=== PATIENT | male | born 1990 | race Caucasian/White ===

== ENCOUNTER 2025-01-11 18:56 | Emergency (ER) | payer SELFPAY ==
--- OUTSIDE RECORDS SUMMARY | 2023-09-25 12:00 | XMS_ITS ---
Author Organization [facility] Address [address] [place] [address] Care Team Providers Care Senior Electronics Engineer Name Role Phone [facility] Unavailable [phone] REASON FOR VISIT Headache / Pain Encounters Encounter Location Date Provider Diagnosis [facility] [address] [place] [address] 09/25/2023 VIRTUAL PRACTICE [facility] Plan Of Treatment No Information Progress Notes * Johnny PETERSONDOB:1990 (34 yo M)Acc No.[id number]:09/25/2023 IMPORT Patient: Johnny BULLOCK Provider: Dillon SOLER :1990 A ge:32 Y S ex:Male Date:09/25/2023 Phone: Address:[address] [facility] Subjective: * Chief Complaints: * 1 . Headache / Pain. * Medical History: Objective: * Vitals: Assessment: Plan: * Treatment: * Billing Information: * Visit Code: * Procedure Codes: * Electronic signature of [facility] on 01/11/2025 at 08:08 PM EDT Sign off status: Pending * Provider: Dillon BUNN [facility] Date: 09/25/2023 Generated for Carmine cantrell/Perla/eTransmitting on: 01/11/2025 08:08 PM EDT
--- OUTSIDE RECORDS SUMMARY | 2024-07-22 04:40 | XMS_ITS ---
Author Organization [facility] Address [address] [place] [address] Support Name Relationship Address , Laxmi March Emergency Contact Unknown Unavailable Johnny Peterson Guarantor Unknown [phone] Care Team Providers Care Electrocardiograph Repairer Name Role Phone Tex Correia Primary Care Provider Unavaila Tex Marks Unavailable [phone] Hemanth Stewart Unavailable [phone] REASON FOR VISIT delayed f/u Encounters Encounter Location Date Provider Diagnosis [facility] Dillon [address] [facility] [place] [address] 07/22/2024 Hemanth Stewart Plan Of Treatment No Information Progress Notes * Johnny PETERSONDOB:1990 (34 yo M)Acc No.[id number]:07/22/2024 Progress Notes Patient: Gerry brownJohnny khan Provider: Gracie Stewart APRN :1990 A ge:33 Y S ex:Male Date:07/22/2024 Address:[address] [place], [place] [address] , [place] Pcp:Tex Correia Subjective: * Chief Complaints: * D elayed f/u Billing Information: * Procedure Codes: Care Plan Details* * Electronic signature of Davie Stewart APRN on 01/11/2025 at 07:08 PM CDT Sign off status: Pending * Provider: Gracie Stewart APRN Date: 07/22/2024 Generated for Printi ng/Faxing/eTransmitting on: 0 01/11/2025 07:08 PM CDT
--- OUTSIDE RECORDS SUMMARY | 2024-07-28 04:20 | XMS_ITS ---
Author Organization [facility] Address [address] [place] [address] Support Name Relationship Address , Laxmi March Emergency Contact Unknown Unavailable Johnny Peterson Guarantor Unknown [phone] Care Team Providers Care Mainspring Former Brace End Name Role Phone Tex Correia Primary Care Provider Unavaila Tex Marks Unavailable [phone] REASON FOR VISIT 2 Weeks. Must stay on schedule. [id number] Encounters Encounter Location Date Provider Diagnosis [facility] [address] [place] [address] 07/28/2024 Tex Correia Chronic pain syndrome G89.4 ; Jaw pain R68.84 and Other specified postprocedural states Z98.890 Assessments Encounter Date Diagnosis (ICD Code) Assessment Notes Treatment Notes Treatment Clinical Notes Section Notes 07/28/2024 Chronic pain syndrome (ICD-10 - G89.4) 07/28/2024 Jaw pain (ICD-10 - R68.84) 07/28/2024 Other specified postprocedural states (ICD-10 - Z98.890) Plan Of Treatment No Information History and Physical Notes * HPI (History of Present Illness) Category Sub-Category Detail Notes Category Not es Provider Note Patient presents to clinic today for a delayed follow-up in regard to his chronic pain. Patient has not been seen in the clinic since January 2024. The patient has been dealing with chronic jaw pain for an extended period. The pain is severe and often results in the jaw locking during activities. This has significantly impacted the patient's quality of life. The patient is scheduled for another jaw surgery, which involves a bone graft. This graft will be sent to infectious disease for further examination. This is not the patient's first experience with invasive treatment, as they have previously had a PICC line for treatment. The patient's surgery is scheduled for August 22. The patient has been on oxycodone 5mg up to 4 a day as needed for pain management. However, they express a desire to discontinue its use due to the opioid nature of the medication. The patient has also been on alprazolam and Trazodone, but has discontinued both with a him last filling his alprazolam early April. The patient has tried buprenorphine tablets in the past, but they caused a reaction of a rash and his pharmacist advised this was due to a reaction with his Trazodone prescription. Despite this, the patient is open to trying buprenorphine tablets again at a lower dose. Pain Details Pain Location ___ Quality ___ Severity of pain at its worst ___ Severity of pain at its best ___ Severity of average pain ___ Severity of pain right now ___ Severity of pain on medication ___ When did you last take your pain medicin e ___ Medication Details Do you have a lock b ox or safe place for medication away from minors and/or others? Yes Do you have any leftover pain medication building up at your house? No Do you understand that pain medication c an be addicting and can cause overdose? Yes Do you feel you can REDUCE the amount of medication you take today? No Opioid Assessment Tools Pill Count ___ Last Urine Drug Screen ___ Today's Rapid Urine Drug Screen ___ [place] Prescription Monitoring Program ___ COMM (Current Opioid Misuse Measure) ___ Treatment History Test undergone in the past ___ Past medication you have taken ___ Treatments you have had ___ Progress Notes * Johnny PETERSONDOB:1990 (34 yo M)Acc No.[id number]:07/28/2024 Progress Notes Patient: Johnny Mclaughlin Provider: Gracie Correia :1990 A ge:33 Y S ex:Male Date:07/28/2024 Address:[address] [place] [address], [id number] Pcp:Tex Correia Subjective: * Chief Complaints: * 2 Weeks. Must stay on schedule. [id number] * HPI: Ruth aguilar Note: Denies : . Patient presents to clinic today for a delayed follow-up in regard to his chronic pain. Patient has not been seen in the clinic since January 2024. The patient has been dealing with chronic jaw pain for an extended period. The pain is severe and often results in the jaw locking during activities. This has significantly impacted the patient's quality of life. The patient is scheduled for another jaw surgery, which involves a bone graft. This graft will be sent to infectious disease for further examination. This is not the patient's first experience with invasive treatment, as they have previously had a PICC line for treatment. The patient's surgery is scheduled for August 22. The patient has been on oxycodone 5mg up to 4 a day as needed for pain management. However, they express a desire to discontinue its use due to the opioid nature of the medication. The patient has also been on alprazolam and Trazodone, but has discontinued both with a him last filling his alprazolam early April. The patient has tried buprenorphine tablets in the past, but they caused a reaction of a rash and his pharmacist advised this was due to a reaction with his Trazodone prescription. Despite this, the patient is open to trying buprenorphine tablets again at a lower dose. P ain Details: Pain Location _ __. Quality _ __. Severity of pain at its worst _ __. Severity of pain at its best _ __. Severity of pain on medication _ __. Severity of average pain _ __. Severity of pain right now _ __. When did you last take your pain medicine _ __. M edication Details: Do you have a lock box or safe place for medication away from minors and/or others? Y es. Do you have any leftover pain medication building up at your house? N o. Do you understand that pain medication can be addicting and can cause overdose? Y es. Do you feel you can REDUCE the amount of medication you take today? N o. O pioid Assessment Tools: COMM (Current Opioid Misuse Measure) _ __. Pill Count _ __. Last Urine Drug Screen _ __. Today's Rapid Urine Drug Screen _ __. [place] Prescription Monitoring Program _ __. T reatment History: Test undergone in the past _ __. Past medication you have taken _ __. Treatments you have had _ __. * ROS: G eneral - Multi System: Constitutional D enies, f ever, recent weight gain, recent weight loss, fatigue. R espiratory D enies, wheezing, shortness of breath, cough, snoring. G astrointestinal D enies, nausea, vomiting, constipation, abdominal pain. P sychiatric D enies, , anxiety, depression, panic attacks, suicidal thoughts. Assessment: * Assessment: 1. C hronic pain syndrome - G89.4 2 . J aw pain - R68.84 3 . O ther specified postprocedural states - Z98.890 Care Plan Details* * Electronic signature of Anthony Correia MD on 01/11/2025 at 07:08 PM CDT Sign off status: Pending * Provider: Gracie Correia Date: 0 07/28/2024 Generated for Carmine cantrell/Perla/Brandi on: 0 01/11/2025 07:08 PM CDT
--- OUTSIDE RECORDS SUMMARY | 2024-12-10 07:00 | XMS_ITS ---
Author Organization [facility] Address [address], [place] [address] Care Team Providers Care Access Spec Name Role Phone Joshua Riggins Primary Care Provider [phone] Umberto Martinez III [phone] Allergies Allergen (clinical drug ingredient) Drug/Non Drug [...] 12/10/2024 Encounters Encounter Location Date Provider Diagnosis [facility] [place] [address] [place] [address] 12/10/2024 Joshua Riggins Plan Of Treatment No Information Progress Notes * Johnny PETERSONDOB:1990 (34 yo M)Acc No.[id number]:12/10/2024 Same Day Patient: Johnny BULLOCK Appointment Provider: ZAHRAA Moreno :1990 A ge:34 Y S ex:Male Date:12/10/2024 Address:[address] [place] [address], [facility] Subjective: * Chief Complaints: * 1 . [...] signature of Danilo Riggins , PAmber on 01/11/2025 at 07:07 PM CDT Sign off status: Pending * Appointment Provider: ZAHRAA Moreno Date: 12/10/2024 Generated for Carmine cantrell/Perla/Brandi on: 01/11/2025 07:07 PM CDT
--- OUTSIDE RECORDS SUMMARY | 2024-12-16 04:00 | XMS_ITS ---
Author Organization [facility] Address [address] [place] [id number] Care Team Providers Care Fibre Optics Jointer Name Role Phone Joshua Riggins Primary Care Provider Umberto Martinez III [phone] REASON FOR VISIT f/u visit Encounters Encounter Location Date Provider Diagnosis [facility] [address] [place] [address] 12/16/2024 Joshua Riggins Plan Of Treatment No Information Progress Notes * Johnny PETERSONDOB:1990 (34 yo M)Acc No.[id number]:12/16/2024 Progress Notes Patient: Johnny BULLOCK Appointment Provider: ZAHRAA Moreno :1990 A ge:34 Y S ex:Male Date:12/16/2024 Address:[address] [place], [place] [address] Subjective: * Chief Complaints: * 1 . F/u visit. * Medical History: Objective: * Vitals: Assessment: Plan: * Treatment: * * Electronic signature of Guido Petersen on 01/11/2025 at 07:08 PM CDT Sign off status: Pending * Appointment Provider: ZAHRAA Moreno Date: 0 12/16/2024 Generated for Carmine cantrell/Perla/eTransmitting on: 0 01/11/2025 07:08 PM CDT
--- OUTSIDE RECORDS SUMMARY | 2024-12-30 03:00 | XMS_ITS ---
Author Organization [facility] Address [address] [place] [id number] Care Team Providers Care Homogenizer Operator Name Role Phone Joshua Riggins Primary Care Provider Umberto Martinez III [phone] REASON FOR VISIT follow - up Encounters Encounter Location Date Provider Diagnosis [facility] [place] [address] [place] [address] 12/30/2024 Joshua Riggins Plan Of Treatment No Information Progress Notes * Johnny PETERSONDOB:1990 (34 yo M)Acc No.[id number]:12/30/2024 Progress Notes Patient: Johnny BULLOCK Appointment Provider: ZAHRAA Moreno :1990 A ge:34 Y S ex:Male Date:12/30/2024 Address:[address] [place], [place] [id number] Subjective: * Chief Complaints: * 1 . Follow - up. * Medical History: Objective: * Vitals: Assessment: Plan: * Treatment: * * Electronic signature of Guido Petersen on 01/11/2025 at 07:08 PM CDT Sign off status: Pending * Appointment Provider: ZAHRAA Moreno Date: 12/30/2024 Generated for Carmine ng/Faxing/eTransmitting on: 01/11/2025 07:08 PM CDT
[2025-01-11 18:59] VITALS: BP 169/110; PULSE 106; RESP 20; TEMP 36.7; O2SAT 98; BMI 29.9
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
--- OUTSIDE RECORDS SUMMARY | 2025-01-11 19:07 | XMS_ITS | Patient Health Record ---
Author Organization [facility] Address [address] [place] [address] Support Name Relationship Address , Laxmi March Emergency Contact Unknown Unavailable Johnny Kasper Guarantor Unknown [phone] Care Team Providers Care Event Staff Member Name Role Phone Tex Correia Primary Care Provider Unavaila Tex Marks Unavailable [phone] Migration, Provider Unavailable Unavailable Hemanth Stewart Unavailable [phone] Astrid Jimenez Unavailable [phone] Allergies Allergen (clinical drug ingredient) Drug/Non Drug Allergy documented on EMR Reaction Allergy Type Onset Date Status Substance with penicillin structure and antibacterial mechanism of action (substance) Penicillins Unknown Drug Allergy Active tramadol Tramadol Unknown Drug Allergy Active Results Component Value Reference Range Notes Urine Drug Screen (cup read) - 47083 Reviewed date:07/13/2024 01:16:43 PM Interpretation:Negative Performing Lab: Notes/Report: Negative zzzUrine Drug Screen (confir mation by instrument) - 78299 Reviewed date:07/20/2024 05:31:29 PM Interpretation: Performing Lab: Notes/Report: Reason For Referral No Information Medications Medication SIG (Take, Route, Frequency, Duration) Notes Start Date End Date Status Hydrocodone Bitartrate *Pick strength-form from [facility] for eRX* Unknown Social History Social History Additional Details Category Social Info Options Details Migrated Social History Migrated Social History Alcoholic beverages? - No, Currently on disability? - Yes, Nonprescription drug use? - No, Participation in detoxification or rehabilitation - No, Smoked in the past? - Yes, Smoking - 1 PPD, Smoking status (MU) - Current everyday smoker, Working currently? - Yes Problems Problem Type SNOMED Code ICD Code Onset Dates Problem Status W/U Status Risk Notes Problem Chronic pain syndrome (283447860) Chronic pain syndrome (G89.4) 12/04/2023 Active confirmed Vital Signs Height-cm 177.80 cm 07/07/2024 Height 70.00 in 07/07/2024 Encounters Encounter Location Date Provider Diagnosis Migrated_Facility 0 0 04/24/2024 Provider Migration Migrated_Facility 0 0 04/25/2024 Provider Migration [facility] [place] [address] [place] [address] 07/07/2024 Tex Correia [facility] [address] [facility] [place] [address] [facility] G89.4 [facility] [address] [facility] [place] [place] [facility] [place] [address] 07/14/2024 [facility] [address] [facility] [place] [facility] [place] [address] 07/14/2024 [facility] [address] [facility] [place] [place] [address] 07/[facility] Chronic pain syndrome G89.4 [facility] [place] [address] [place] [address] 07/15/2024 Tex Correia Chronic pain syndrome G89.4 [facility] [place] [address] [place] [address] 07/15/2024 Tex Correia Chronic pain syndrome G89.4 [facility] [address] [facility] [place] [address] 07/16/2024 [facility] [address] [facility] [place] [address] 07/20/2024 Tex Correia [facility] [place] [address] [place] [address] 08/13/2024 Tex Correia [facility] [place] [address] [place] [address] 01/29/2024 Hemanth Stewart [facility] [place] [address] [place] [address] 02/12/2024 Tex Correia [facility] [address] [facility] [place] [address] 07/13/2024 Astrid Jimenez Chronic pain syndrome G89.4 ; Jaw pain R68.84 ; History of bone graft Z98.890 and Admission for long-term opiate use Z79.891 Assessments Encounter Date Diagnosis (ICD Code) Assessment Notes Treatment Notes Treatment Clinical Notes Section Notes 07/13/2024 Chronic pain syndrome (ICD-10 - G89.4) I had a nice discussion with the patient in regard to his chronic pain. I also consulted Dr. Correia on this case as patient is still fairly new to us in is also a difficult case with his current health issues and ongoing surgeries. With patient's report of open-minded to trial buprenorphine tablets again, it was determined that we could try buprenorphine 2 mg to be utilized half a tablet twice a day for over the next 2 weeks. With the patient's report of changing his insurance from unrival to Medicaid, they are not likely to cover this medication as he is not nor breast-feeding. So, we will trial him on buprenorphine/nalo xone 2 mg daily half a tablet twice a day. Patient will return to clinic in [address] Correia to review effectiveness of medication. Again, he was advised that his surgeon would be in charge of his postoperative pain medication management following his jaw surgery on August 22. 07/13/2024 Jaw pain (ICD-10 - R68.84) 07/13/2024 Chronic pain syndrome (ICD-10 - G89.4) 07/14/2024 Chronic pain syndrome (ICD-10 - G89.4) 07/15/2024 Chronic pain syndrome (ICD-10 - G89.4) 07/15/2024 Chronic pain syndrome (ICD-10 - G89.4) 07/13/2024 History of bone graft (ICD-10 - Z98.890) 07/13/2024 Admission for long-term opiate use (ICD-10 - Z79.891) Plan Of Treatment No Information Insurance Providers Payer Name Payer Address Payer Phone Subscriber Number Group Number Insured Name Patient Relationship to Insured Coverage Start Date Coverage End Date [place] [address] [place] [address] [id number] Johnny Kasper Self - patient is the insured Medical (General) History Medical History History ICD Code arthritis headaches/migraines depression anziety Surgical History Surgery Date(Month/Year) appendectomy Jaw surgery
--- OUTSIDE RECORDS SUMMARY | 2025-01-11 19:08 | XMS_ITS | Patient Health Record ---
Author Organization [facility] Address [address] [place] [address] Care Team Providers Care Form Worker Name Role Phone Vera Fu Unavailable Unavailable Allergies Allergen (clinical drug ingredient) Drug/Non Drug Allergy documented on EMR Reaction Allergy Type Onset Date Status naproxen Naproxen Unknown Drug Allergy Active Penicillin Unknown Drug Allergy Active Reason For Referral No Information Social History Tobacco Use: Social History Observation Description Date Details (start date - stop date) Current Smoker NA - NA Tobacco Use/Smoking Question Answer Notes Are you a current smoker Alcohol Screen Question Answer Notes Did you have a drink contain ing alcohol in the past year? Yes How often did you have a dri nk containing alcohol in the past year? Monthly or less (1 point) How many drinks did you have on a typical day when you were drinking in the past year? 1 or 2 drinks (0 point) How often did you have 6 or more drinks on one occasion in the past year? Never (0 point) Points 1 Interpretation Negative Problems Problem Type SNOMED Code ICD Code Onset Dates Problem Status W/U Status Risk Notes Problem Chronic pain (86914975) Other chronic pain (G89.29) Active confirmed Plan Of Treatment No Information Insurance Providers Payer Name Payer Address Payer Phone Subscriber Number Group Number Insured Name Patient Relationship to Insured Coverage Start Date [facility]age End Date [facility] [address] [facility] [place] [address] [id number] CHET PETERSON Self - patient is the insured Medical (General) History Medical History History ICD Code depression anxiety Surgical History Surgery Date(Month/Year) Right Knee Surgery Scope Appendectomy Right Knee Surgery for Patellar Tendon R epair Facial Surgery with Plate Hospitalization History Reason Date(Month/Year) See Surgical History
--- OUTSIDE RECORDS SUMMARY | 2025-01-11 19:08 | XMS_ITS | Patient Health Record ---
Author Organization [facility] Address [address] [place] [address] Support Name Relationship Address Phone Johnny Kasper Guarantor Unknown Unavailable Reason For Referral No Information Plan Of Treatment No Information
--- OUTSIDE RECORDS SUMMARY | 2025-01-11 19:08 | XMS_ITS | Encounter Summary ---
Author Organization [facility] Address [address] [place] [address] Care Team Providers Care Umbrella Supervisor Name Role Phone Glenroy Brenner MD Primary Care Provider + [phone] Reason for Visit * Reason Comments Needs Orders Written Encounter Details Date Type Department Care Team ([facility] st Contact Info) Description 12/29/2024 Telephone [facility] Family Medicine [facility] [address] [address] [address] [place] [address] Glenroy Brenner MD [address] [facility] [address] [place] [address] Needs Orders Written Social History Tobacco Use Types Packs/Day Years Used Date Smoking Tobacco: Every Day Cigarettes 0.5 16.5 Started: 2008 Passive Smoke Exposure: Never Smokeless Tobacco: Never Alcohol Use Standard Drinks/Week Comments Not Currently 0 (1 standard drink = 0.6 oz pur e alcohol) occassionally Utility Needs Answer Date Recorded In the past 12 months has [facility], gas, oil, or water Saav[employer] threatened to shut off services in your home? No 02/08/2024 Feeling Safe Answer Date Recorded Within the last year, have y ou been afraid of your partner or ex-partner? Patient declined 02/07/2024 Within the last year, have y ou been humiliated or emotionally abused in other ways by your partner or ex-partner? Patient declined 02/07/2024 Within the last year, have y ou been kicked, hit, slapped, or otherwise physically hurt by your partner or ex-partner? Patient declined 02/07/2024 Within the last year, have y ou been raped or forced to have any kind of sexual activity by your partner or ex-partner? Patient declined 02/07/2024 Social Connections Answer Date Recorded In a typical week, how many times do you talk on the telephone with family, friends, or neighbors? More than three times a week 10/18/2023 How often do you get togethe r with friends or relatives? More than three times a week 10/18/2023 How often do you attend chur or congregational services? More than 4 times per year 10/18/2023 Do you belong to any clubs o r organizations such as islam groups, unions, fraternal or athletic groups, or school groups? Yes 10/18/2023 How often do you attend meet ings of the clubs or organizations you belong to? More than 4 times per year 10/18/2023 Are you , , di vorced, , never , or living with a partner? 10/18/2023 Financial Resource Strain Answer Date R ecorded How hard is it for you to pa y for the very basics like food, housing, medical care, and heating? Not hard at all 09/18/2023 Food Insecurity Answer Date Recorded In the past 12 months, have you worried that your food would run out before you had money to buy more? Never true 09/18/2023 In the past 12 months, did y ou run out of food and didn't have money to buy more? Never true 09/18/2023 Transportation Needs Answer Date Record ed In the past 12 months, has l ack of transportation kept you from medical appointments or from getting medications? No 08/29 In the past 12 months, has l ack of transportation kept you from meetings, work, or from getting things needed for daily living? No 09/18/2023 Housing Stability Answer Date Recorded In the last 12 months, was t here a time when you were not able to pay the mortgage or rent on time? No 10/14/2023 Number of Times Moved in the Last Year Not on fi le 10/14/2023 Unstable Housing in the Last Year Not on file 10/14/2023 Medication Needs Answer Date Recorded Have you skipped taking medi cation due to cost or worry you can t afford new medications? No 08/09/2024 Feeling Safe Answer Date Recorded Are you in a relationship wi th someone who hurts you emotionally and/or physically? No 12/21/2024 Food Insecurity Answer Date Recorded Social/Environmental Concerns No concerns Transportation Needs Answer Date Record ed Social/Environmental Concerns No concerns Housing Stability Answer Date Recorded Social/Environmental Concerns No concerns Utility Needs Answer Date Recorded Social/Environmental Concerns No concerns Sex and Gender Information Value Date Recorded Sex Assigned at Not on file Legal Sex Male 2:13 AM [employer] Gender Identity Not on file Sexual Orientation Not on file documented as of this encounter Miscellaneous Notes * Telephone Encounter - Luba Kothari - 12/29/2024 10:34 AM CDT Copied from [facility] #[id number]. Topic: CPA Information Request - Order or Referral Request >> Dec 29, 2024 10:33 AM Luba Terry wrote: Caller Name: Johnny Kasper Patient/Caregiver Callback Number: Telephone Information: Call Notes: would like referral to pain management Caller is requesting: New Referral Has the patient been seen for this issue? YES Requests Referral to Specialty: pain management Reason for referral (Symptoms / Diagnosis): back pain Previously discussed with provider? yes Is patient requesting a certain provider or facility? no documented in this encounter Plan of Treatment Upcoming Encounters Date Type Department Care Team (Late st Contact Info) Description 03/31/2025 9:00 AM CDT Office Visit [facility] Family Medicine [address] [facility] [address] [place] [address] Glen[facility] Brenner MD [facility] [address] [place] [phone] documented as of this encounter Visit Diagnoses Not on filedocumented in this encounter Care Teams Umbrella Supervisor Relationship Specialty Start Date End Date Glenroy Brenner MD [address] [place] [address] [address] [facility] [address] [place] [phone] PCP - General Family Practice 12/29/24 documented as of this encounter
--- OUTSIDE RECORDS SUMMARY | 2025-01-11 19:08 | XMS_ITS | Clinical Summary ---
Author Organization [facility] Address [address] Schulzn: Epic Prelude ADT [place] [address] Care Team Providers Care Director Patient Name Role Phone Glenroy Brenner MD Primary Care Provider [phone]- [phone] Allergies Active Allergy Reactions Criticality Noted Date Comments Buspirone Angioedema High 11/08/2024 Ceftriaxone Rash Low 11/21/2023 Ketorolac Swelling High 09/18/2023 Naproxen Rash,Unknown Low 08/27/2013 Penicillins Rash,Hives High 11/02/2001 Tramadol Swelling Low 06/16/2018 Medications traZODone (DESYREL) 50 mg tablet Take 50 mg by mouth daily at bedtime. Active naloxone (NARCAN) 4 mg/spray [place], Non-Aerosol EMERGENCY USE ONLY: Administer 1 spray (4 mg) in one nostril one time. May repeat in alternating nostrils every 2-3 min until responsive or EMS arrives. 2 Each 3 5 Active cloNIDine HCL (CATAPRES) 0.1 mg tablet Take 0.1 mg by mouth 2 times daily. 5 Active HYDROcodone-ac etaminophen (NORCO) 7.5-325 mg Tablet Take 1 Tablet by mouth 2 times daily. 5 Active ondansetron (ZOFRAN ODT) 4 mg Tablet, Rapid Dissolve Place 4 mg under tongue every 8 hours as needed for Nausea. 5 Active cyclobenzaprin e (FLEXERIL) 10 mg tabletIndicati ons:Chronic midline low back pain without sciatica Take 1 Tablet (10 mg) by mouth 3 times daily as needed for Spasm. 90 Tablet 1 5 Active cyclobenzaprin e (FLEXERIL) 10 mg tablet Take 1 Tablet (10 mg) by mouth 3 times daily as needed for Spasm. 30 Tablet 5 12/30/19 25 Discontin ued(Reord er) Active Problems Problem Noted Date Diagnosed Date PTSD (post-traumatic stress disorder) 08/02/2024 ARLENE (generalized anxiety disorder) 08/02/2024 Other chronic pain 10/19/2023 Osteomyelitis of mandible 10/19/2023 Anxiety 10/19/2023 Acute midline thoracic back pain 08/12/2018 History of hepatitis C 06/16/2018 Tobacco use 05/03/2015 Resolved Problems Problem Noted Date Diagnosed Date Resolved Date Acute pain of right knee 06/16/2018 Strain of right knee and leg 08/28/2013 06/16/2018 Contusion, knee 07/23/2013 08/12/2018 Encounters Date Type Department Care Team Description 01/04/2025 External Device Data ST[facility] ABSTRACTION Provider, Abstract 01/04/2025 External Device Data [facility] ABSTRACTION Provider, Abstract 01/04/2025 External Device Data [facility] ABSTRACTION Provider, Abstract 12/31/2024 Nurse Triage [facility] [address] [place] [address] Chastity Simpson RN 12/30/2024 Orders Only [facility] [address] [place] [phone] Provider, Abstract 12/29/2024 8:00 AM CDT Office Visit [facility] [address] [address] [address] [place] [phone] Glenroy Brenner MD Chronic midline low back pain without sciatica (Primary Dx) 12/29/2024 Telephone [facility] [address] [address] [address] [place] [phone] Glenroy Brenner MD Needs Orders Written 12/21/2024 2:54 PM CDT - 12/21/2024 5:31 PM CDT Emergency [facility] Emergency Department [address] [place] [phone] Discharge Disposition: Eloped After Seeing Provider 12/21/2024 Travel 12/09/2024 4:38 PM CDT - 12/09/2024 6:24 PM CDT [facility] Emergency Medicine [address] [place] [address] Daljit Stephenson MD Jaw pain (Primary Dx) Discharge Disposition: Home or Self Care 12/09/2024 Travel 11/30/2024 External Device Data ST[facility] ABSTRACTION Provider, Abstract 11/16/2024 3:32 PM CDT - 11/16/2024 4:59 PM CDT [facility] Emergency Medicine [address] [place] [phone] Tex Harrison MD Acute bilateral low back pain without sciatica (Primary Dx); Fall, initial encounter Discharge Disposition: Home or Self Care 11/13/2024 10:28 PM CDT - 11/13/2024 11:05 PM CDT [facility] Emergency Medicine [address] [place] [phone] Harshad Sheehan MD Malingering (Primary Dx); Opioid abuse (CMS/HCC) Discharge Disposition: Home or Self Care 11/13/2024 Travel 11/09/2024 [facility] [address] [place] [address] Jacklyn Sen [facility] 11/08/2024 8:45 PM CDT - 11/08/2024 10:41 PM CDT Emergency [facility] Emergency Medicine [address] [place] [phone] Douglas Gabriel MD Opiate withdrawal (CMS/HCC) (Primary Dx); Chronic prescription opiate use Discharge Disposition: Home or Self Care 11/04/2024 12:21 PM CDT - 11/04/2024 1:26 PM CDT [facility] Emergency Medicine [address] [place] [phone] Jeancarlos Almeida MD Opioid withdrawal (CMS/HCC) (Primary Dx) Discharge Disposition: Home or Self Care 11/02/2024 External Device Data [facility] ABSTRACTION Provider, Abstract 11/02/2024 External Device Data [facility] ABSTRACTION Provider, Abstract 11/02/2024 External Device Data ST[facility] ABSTRACTION Provider, Abstract 10/28/2024 8:22 PM CDT - 10/28/2024 9:34 PM CDT Emergency [facility] Emergency Medicine [address] [place] [address] Douglas Gabriel MD Chronic jaw pain (Primary Dx) Discharge Disposition: Home or Self Care 10/28/2024 Travel 10/13/2024 Telephone [facility] [address] [place] [address] Ray Colmenares, DO Other from Last 3 Months Immunizations Immunization Administration Dates Next Due (ADACEL/BOOSTRIX)(10 YR UP) TDAP VACCINE, 0.5ML, IM 02/05/2007 (INFANRIX)(6 WKS-6 YRS) DIPT HERIA, TETANUS TOXOIDS, AND ACCELLULAR PERTUSSIS VACCINE (DTAP), 0.5 ML IM 02/28/1998 (CONSTANTINO) COVID-19 VACCINE - EMERGENCY USE AUTHORIZATION, AD26,COV2S(PF) 0.5 ML IM SUSP 12/12/2020 (M-M-R II/PRIORIX)(12 MO UP) MEASLES, MUMPS AND RUBELLA VIRUS VACCINE, 0.5 ML IM/SUBCUT 04/15/2000,02/28/1998 (RECOMBIVAX HB/ENGERIX-B)(0- 19 YRS) HEPATITIS B VACCINE 5 MCG/0.5 ML OR 10 MCG/0.5 ML PED OR ADOL 3 DOSE (PF), IM 12/13/1993,1992,1992 (VARIVAX)(12 MOS UP)VARICELL A VIRUS VACCINE (PF) 0.5 ML, SUB CUT 02/05/2007,02/28/1998 Diptheria, Tetanus Toxoids, And Whole Cell Pertussis Vaccine (DTP), for intramuscular use 12/13/1993,03/06/1993,01/04/1993 Hemophilus influenza b vacci ne (Hib), HbOC conjugate (4 dose schedule), for intramuscular use 12/13/1993,03/06/1993,01/04/1993 Poliovirus Vaccine Live Oral 02/28/1998,03/06/19 93,01/04/1993 Family History Medical History Relation Name Comments No Known Problems Daughter Hypertension Father Stroke Father Hypertension Mother Kidney Disease Mother Relation Name Status Comments Daughter Alive Father Alive Maternal Grandfather Alive Maternal Grandmother Alive Mother Alive Paternal Grandfather Paternal Grandmother Social History Tobacco Use Types Packs/Day Years Used Date Smoking Tobacco: Every Day Cigarettes 0.5 16.5 Started: 2008 Passive Smoke Exposure: Never Smokeless Tobacco: Never Tobacco Cessation:Ready to Q uit: Not Asked; Counseling Given: Not Answered Alcohol Use Standard Drinks/Week Comments Not Currently 0 (1 standard drink = 0.6 oz pur e alcohol) occassionally Utility Needs Answer Date Recorded In the past 12 months has [employer], [employer], oil, or water [email or web address] threatened to shut off services in your [...] week 10/18/2023 How often do you attend [facility] or buddhist services? 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 Gender Identity Not on file Sexual Orientation Not on file Last Filed Vital Signs Vital Sign Reading Time Taken Comments Blood Pressure 128/80 12/29/2024 7:48 AM CDT Pulse 77 12/29/2024 7:48 AM CDT Temperature 36.9 C (98.4 F) 12/29/2024 7:48 AM CDT Respiratory Rate 18 12/29/2024 7:48 AM CDT Oxygen Saturation 99% 12/29/2024 7:48 AM CDT Inhaled Oxygen Concentration - - Weight 97.5 kg (215 lb) 12/29/2024 7:48 AM CDT Height 175.3 cm (5' 9 ) 12/29/2024 7:48 AM CDT Body Mass Index 31.75 12/29/2024 7:48 AM CDT Plan of Treatment Upcoming Encounters Date Type Department Care Team (Late st Contact Info) Description 03/31/2025 9:00 AM CDT Office Visit [facility] Family Medicine [address] [address] [address] [place] [phone] Glenroy Brenner MD [address] [address] [address] [place] [phone] Health Maintenance Due Date Last Done Comments DTAP/TDAP/TD VACCINES (6 - Td or Tdap) 02/05/2017 02/05/2007, 02/28/1998, 12/13/1993, Additional history exists COVID-19 Vaccine ( season) 2024 12/12/2020 Preventative Visit- Commercial 06/30/2024 INFLUENZA VACCINE (#1) 2025 06/16/2018 HEPATITIS B VACCINES Completed 12/13/1993, 1992, 1992 HPV VACCINES Aged Out No longer eligi ble based on patient's age to complete this topic Procedures Procedure Name Priority Date/Time Associated Diagnosis Comments COMPREHENSIVE METABOLIC PANEL Routine 12/27/2024 10:[address] LUMBAR SPINE WO CONTRAST Stat 11/16/2024 4:[address] CERVICAL SPINE WO CONTRAST Stat 11/16/2024 4:[address] HEAD WO CONTRAST Stat 11/16/2024 4 :26 PM CDT from Last 3 Months Results * COMPREHENSIVE METABOLIC PANEL (12/27/2024 10:21 AM CDT) Blood us Abstract Provider CHEMISTRY ORDERABLES Final Res ult * CT LUMBAR SPINE WO CONTRAST (11/16/2024 4:27 PM CDT) Anatomical Region Laterality Modality Spine Computed Tomogra phy 11/16/2024 3:52 PM CDT Impressions 11/16/2024 4:33 PM CDT Impression: No acute osseous abnormality. Narrative 11/16/2024 4:33 PM CDT Provided indication: Low back pain, trauma. Comparison: No existing relevant imaging studies are available. CT and nuclear medicine myocardial perfusion studies performed in last 12 months: 0 Technique: Unenhanced CT of the lumbar spine performed per protocol. Multiplanar reconstructions were provided. Dose reduction techniques were utilized for this exam including automated exposure control, adjustments to mA and/or kV according to patient's size, and the use of iterative reconstruction techniques. Findings: No fracture or malalignment. Spinal curvature is normal. Vertebral body heights and intervertebral disc spaces are maintained. No high-grade bony canal stenosis. Surrounding soft tissues appear normal. Procedure Note Johnny Wayne, DO - 11/16/2024 Provided indication: Low back pain, trauma. Comparison: No existing relevant imaging studies are available. CT and nuclear medicine myocardial perfusion studies performed in last 12 months: 0 Technique: Unenhanced CT of the lumbar spine performed per protocol. Multiplanar reconstructions were provided. Dose reduction techniques were utilized for this exam including automated exposure control, adjustments to mA and/or kV according to patient's size, and the use of iterative reconstruction techniques. Findings: No fracture or malalignment. Spinal curvature is normal. Vertebral body heights and intervertebral disc spaces are maintained. No high-grade bony canal stenosis. Surrounding soft tissues appear normal. Impression: No acute osseous abnormality. Tex Harrison MD CT ORDERABLES Final Result * CT CERVICAL SPINE WO CONTRAST (11/16/2024 4:26 PM CDT) Anatomical Region Laterality Modality Spine Computed Tomogra phy 11/16/2024 3:48 PM CDT Impressions 11/16/2024 4:36 PM CDT IMPRESSION: No displaced fracture or acute cervical spinal abnormality identified. Narrative 11/16/2024 4:36 PM CDT PROCEDURE: CT CERVICAL SPINE WO CONTRAST REASON FOR STUDY: Polytrauma, blunt PROCEDURE DATE: 11/16/2024 4:26 PM TECHNIQUE AND FINDINGS: Axial CT images were obtained from the skull base to thoracic inlet with sagittal and coronal reformation. Comparisons: None Automated exposure control utilized for dose reduction. Study count/12 months: CT 4, cardiac nuclear medicine 0. FINDINGS: The cervical vertebral segments are in normal alignment. The vertebral body heights are maintained. The disc spaces are maintained. No significant spondylosis or osteoarthritis identified. The dens is intact. The anterior arch to dens distance is maintained. The anterior and posterior arch of C1 are intact. No displaced fracture or acute bony abnormality identified. Procedure Note Douglas Uriostegui MD - 11/16/2024 PROCEDURE: CT CERVICAL SPINE WO CONTRAST REASON FOR STUDY: Polytrauma, blunt PROCEDURE DATE: 11/16/2024 4:26 PM TECHNIQUE AND FINDINGS: Axial CT images were obtained from the skull base to thoracic inlet with sagittal and coronal reformation. Comparisons: None Automated exposure control utilized for dose reduction. Study count/12 months: CT 4, cardiac nuclear medicine 0. FINDINGS: The cervical vertebral segments are in normal alignment. The vertebral body heights are maintained. The disc spaces are maintained. No significant spondylosis or osteoarthritis identified. The dens is intact. The anterior arch to dens distance is maintained. The anterior and posterior arch of C1 are intact. No displaced fracture or acute bony abnormality identified. IMPRESSION: No displaced fracture or acute cervical spinal abnormality identified. Tex Harrison MD CT ORDERABLES Final Result * CT HEAD WO CONTRAST (11/16/2024 4:26 PM CDT) Anatomical Region Laterality Modality Head Computed Tomogra phy 11/16/2024 4:26 PM CDT Impressions 11/16/2024 4:39 PM CDT IMPRESSION: No acute intracranial abnormality identified. Narrative 11/16/2024 4:39 PM CDT PROCEDURE: CT HEAD WO CONTRAST REASON FOR STUDY: Polytrauma, blunt PROCEDURE DATE: 11/16/2024 4:26 PM TECHNIQUE AND FINDINGS: Noncontrast axial CT images performed of the brain. Comparisons: None Automated exposure control utilized for dose reduction. Study count/12 months: CT 4, cardiac nuclear medicine 0. FINDINGS: The ventricular system is normal in size and symmetric in configuration. There is no shift of midline structures. No abnormal density changes are seen to suggest acute hemorrhage. There are no extra-axial fluid collections. The smiley-white interface is maintained. The basal ganglia is symmetric in appearance. The midbrain, daljit and medulla are unremarkable. The right and left cerebellar hemispheres are unremarkable. No acute osseous abnormality identified. Procedure Note Douglas Uriostegui MD - 11/16/2024 PROCEDURE: CT HEAD WO CONTRAST REASON FOR STUDY: Polytrauma, blunt PROCEDURE DATE: 11/16/2024 4:26 PM TECHNIQUE AND FINDINGS: Noncontrast axial CT images performed of the brain. Comparisons: None Automated exposure control utilized for dose reduction. Study count/12 months: CT 4, cardiac nuclear medicine 0. FINDINGS: The ventricular system is normal in size and symmetric in configuration. There is no shift of midline structures. No abnormal density changes are seen to suggest acute hemorrhage. There are no extra-axial fluid collections. The smiley-white interface is maintained. The basal ganglia is symmetric in appearance. The midbrain, daljit and medulla are unremarkable. The right and left cerebellar hemispheres are unremarkable. No acute osseous abnormality identified. IMPRESSION: No acute intracranial abnormality identified. us Tex Harrison MD CT ORDERABLES Final Result from Last 3 Months Insurance [facility] [employer] TRUE BLUE PPO Advance Directives For more information, please contact: [phone] * Full Code (Latest Code Status on File) Date Activated Date Inactivated Comments 10/18/2023 11:26 PM 10/21/2023 3:35 PM Care Teams Director Patient Relationship Specialty Start Date End Date Glenroy Brenner MD [address] [place] [address] [address] [facility] [address] [place] [phone] PCP - General Family Practice 12/29/24
--- OUTSIDE RECORDS SUMMARY | 2025-01-11 19:09 | XMS_ITS | Encounter Summary ---
Author Organization [facility] Address [address] [place] [address] Care Team Providers Care Senior Materials Scientist Name Role Phone Glenroy Bernner MD Primary Care Provider [phone] Encounter Details Date Type Department Care Team (Late st Contact Info) Description 12/30/2024 Orders Only [facility] [address] [place] [address] Provider, Abstract NO ADDRESS ON FILE Social History Tobacco Use Types Packs/Day Years Used Date Smoking Tobacco: Every Day Cigarettes 0.5 16.5 Started: 2008 Passive Smoke Exposure: Never Smokeless Tobacco: Never Alcohol Use Standard Drinks/Week Comments Not Currently 0 (1 standard drink = 0.6 oz pur e alcohol) occassionally Utility Needs Answer Date Recorded In the past 12 months has [employer], gas, oil, or water [employer] threatened to shut off services in your [...] 10/18/2023 How often do you attend chur ch or faith services? 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 Gender Identity Not on file Sexual Orientation Not on file documented as of this encounter Plan of Treatment Upcoming Encounters Date Type Department Care Team (Late st Contact Info) Description 03/31/2025 9:00 AM CDT Office Visit [facility] Family Medicine [address] [facility] [address] [place] [phone] Glenroy Brenner MD [address] [facility] [address] [place] [phone] documented as of this encounter Procedures Procedure Name Priority Date/Time Associated Diagnosis Comments COMPREHENSIVE METABOLIC PANEL Routine 12/27/2024 10:21 AM CDT documented in this encounter Results * COMPREHENSIVE METABOLIC PANEL (12/27/2024 10:21 AM CDT) Blood us Abstract Provider CHEMISTRY ORDERABLES Final Res ult documented in this encounter Visit Diagnoses Not on filedocumented in this encounter Care Teams Senior Materials Scientist Relationship Specialty Start Date End Date Glenroy Brenner MD [address] [place] [address] [address] [place] [phone] PCP - General Family Practice 12/29/24 documented as of this encounter
--- OUTSIDE RECORDS SUMMARY | 2025-01-11 19:09 | XMS_ITS | Encounter Summary ---
Author Organization [facility] Address [address] [place] [address] Care Team Providers Care Termite Control Service Representative Name Role Phone Glenroy Brenner MD Primary Care Provider [phone] Encounter Details Date Type Department Care Team (Late st Contact Info) Description 01/04/2025 External Device Data [facility] ABSTRACTION Provider, Abstract NO ADDRESS ON FILE Social History Tobacco Use Types Packs/Day Years Used Date Smoking Tobacco: Every Day Cigarettes 0.5 16.5 Started: 2008 Passive Smoke Exposure: Never Smokeless Tobacco: Never Alcohol Use Standard Drinks/Week Comments Not Currently 0 (1 standard drink = 0.6 oz pur e alcohol) occassionally Utility Needs Answer Date Recorded In the past 12 months has [email or web address], gas, oil, or water [employer] threatened to shut off services in your [...] often do you attend chur ch or lutheran services? 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 Gender Identity Not on file Sexual Orientation Not on file documented as of this encounter Plan of Treatment Upcoming Encounters Date Type Department Care Team (Late st Contact Info) Description 03/31/2025 9:00 AM CDT Office Visit [facility] Family Medicine [address] [facility] [address] [place] [phone] Glenroy Brenner MD [address] [facility] [address] [place] [phone] documented as of this encounter Visit Diagnoses Not on filedocumented in this encounter Care Teams Termite Control Service Representative Relationship Specialty Start Date End Date Glenroy Brenner MD [address] [facility] [address] [place] [phone] PCP - General Family Practice 12/29/24 documented as of this encounter
--- OUTSIDE RECORDS SUMMARY | 2025-01-11 19:09 | XMS_ITS | Encounter Summary ---
Author Organization [facility] Address [address] [place] [address] Care Team Providers Care Pig Casting Machine Operator Name Role Phone Glenroy Brenner MD Primary Care Provider [phone] Encounter Details Date Type Department Care Team [...] Recorded In the past 12 months has [employer], gas, oil, or water [employer] threatened to shut off services in your [...] often do you attend chur ch or anglican services? 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 Gender Identity Not on file Sexual Orientation Not on file documented as of this encounter Plan of Treatment Upcoming Encounters Date Type Department Care Team (Late st Contact Info) Description 03/31/2025 9:00 AM CDT Office Visit [facility] Family Medicine [address] [facility] [address] [place] [phone] Glenroy Brenner MD [address] [facility] [address] [place] [phone] documented as of this encounter Visit Diagnoses Not on filedocumented in this encounter Care Teams Pig Casting Machine Operator Relationship Specialty Start Date End Date Glenroy Brenner MD [address] [facility] [address] [place] [phone] PCP - General Family Practice 12/29/24 documented as of this encounter
--- OUTSIDE RECORDS SUMMARY | 2025-01-11 19:09 | XMS_ITS | Data Portability ---
Author Organization [facility], [facility] Procedures Address [address] [place] [address] Assessment Encounter Date Assessment Date Assessment LastModified by Organization Details LastModified Time 07/21/2024 07/21/2024 Patient is a 33 yo with PMH of kidney disease? who was referred from self for evaluation and management of osteomyelitis vs osteosarcoma. He states they are planning to do IV chemotherapy. He is trying to transfer chronic opioid management here. On review of his ASSISTANT PROFESSOR OF GEOGRAPHY, he was most recently prescribed Suboxone therapy with Dr. Castro. The patient states this does not work. I did let him know that we are an interventional clinic and would be unable to take over his oxycodone. In the setting of osteosarcoma, he likely will have a palliative care doctor to take this over. It is unclear when he is supposed to see an oncologist. I did provide numbers to clinics in the area who do provide higher dose opioid medication. He understands. [email or web address] Not available 07/22/2024 09:09:16 Plan of Treatment Reminders Order Date Submit Date Provider Last Modified By Organization Details Last Modified Time Details Appointments None record ed. Lab None record ed. Referral None record ed. Procedures None record ed. Surgeries None record ed. Imaging None record ed. Medication Orders None record ed. Patient TargetsNo targets recorded. Patient InstructionsNo instructions recorded. Reason for Referral None Reported. Results Created Date Observation Date Name Description Value Unit Range Abnormal Flag Note LastModifiedBy Organization Detail LastModifiedTime 07/20/1906/27/2023 CT, abdom en, w/o contr ast No observ ation record ed. [email or web address] Not Available 2024 10:38:04 Result Notes None recorded. 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 Procedures Surgical History Date Name Laterality Status Provider Name and Address Organization Details Recorded Time 11/14/2023 Other completed Consuelo Rojas [facility] 07/21/2024 16:44:46 Imaging Results None recorded. Procedure Notes None recorded. Medical Equipment None Reported. Allergies Allergen ID Allergen Name Allergen Category Reaction Reaction Severity Criticality Documentation Date Start Date Code Code System Note Provider Name and Address Organization Details Recorded Time 15585 Product containin g penicilli n (product) medicatio n hives severe Not available 07/21/20242001 76846 8001 SNOMED Consuelo Rojas [facility] 5 16:44:45 Medications Name Sig Start Date Stop Date Status Note LastModified by Organization Details LastModified Time bupropion HCl 100 mg tablet Take 1 tablet twice a day by oral route. active Not Available Not Available No t Available Oxycodone Hydrochloride 2013 active Not Available Not Available Not Avai lable Vitals Date Recorded Respiratory rate Body weight Body mass index (BMI) Body height Body temperature Oxygen saturation Oxygen saturation in Arterial blood by Pulse oximetry Heart rate Systolic And Diastolic Provider Name and Address Organization Details Last Updated DateTime 5 12 /min 33361.7 8 g 32 kg/m2 171.45 cm 99.1 [degF] 99 % 99 % 67 /min 192/114 mm[Hg] Consuelo Rojas [facility] 16:55:35 Social History Question Answer Notes LastModified by Organizat ion Details LastModified Time Tobacco Smoking Status Current Every Day Smoker Consuelo Rojas nikki [facility] 07/21/2024 16:58:26 What Is Your Level Of Caffeine Consumption? Moderate [email or web address] Information not available 07/21/2024 How Much Tobacco Do You Chew? None [email or web address] Information not available 07/21/2024 Which Illicit Or Recreational Drugs Have You Used? None Information not available 07/21/2024 What Is The Highest Grade Or Level Of School You Have Completed Or The Highest Degree You Have Received? [id number] [email or web address] Information not available 07/21/2024 How Much Tobacco Do You Smoke? 1 PPD [email or web address] Information not available 07/21/2024 How Many Years Have You Smoked Tobacco? 20 Information not available 07/21/2024 Sex: Unknown Functional Status Question Answer Note LastModified by Organizat ion Details LastModified Time Do you use any illicit or recreational drugs? No [email or web address] Information not available 07/21/2024 What is your level of alcohol consumption? 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 Family History Relationship Description Onset Age of this Age Resolved Age Notes LastModified by Organization Details LastModified Time Mother Arthritis 55 [email or web address] Not availab le 07/21/2024 16:44:45 Mother Kidney disease 48 Not available 2024 16:44:45 Maternal Grandfather Malignant neoplastic disease 65 [email or web address] Not available 2024 16:44:45 Paternal Grandfather Back problem 65 [email or web address] Not available 07/21/2024 16:44:45 Medical History Condition Response Cancer Y Kidney Disease Y Past Encounters Encounter ID Performer Location Encounter Start Date Encounter Closed Date Diagnosis/Indication Diagnosis SNOMED-CT Code Diagnosis ICD10 Code Diagnosis Note [id number] NENO PACK MD [facility] Main Office [address] [facility] [address] [place] [address] 07/21/2024 16:29:36 07/21/2024 17:19:58 Chronic pain syndrome 687594739 G89.4 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 47103 G50.1 Osteonecrosis of jaw 135 8439473 M87.9 Health Concerns Section Related Observation LastModified by Organization Detai ls LastModified Time None Recorded Concern Status LastModified by Organization Details LastModified Time None Recorded Advance Directives Directive None Recorded Payers Insurance Date Sequence Insurance Name Policy Number Policy Ojeda Covered Member ID Ojeda Member ID Guarantor Name 07/21/2024 2 [place] Johnny Kasper [id number] 1 Johnny Kasper 07/21/2024 1 [place] MERYLADALID Kasper [id number] Johnny Kasper Notes Date Note Type Note Provider Name and Address Organization Details Recorded Time 5 text/html Patient is a 33 yo with PMH of kidney disease? who was referred from self for evaluation and management of osteomyelitis vs osteosarcoma. He states they are planning to do IV chemotherapy. He was previously a patient at a pain clinic in [place] but states they put him on Suboxone and he does not want to do that. He was hopeful that he could find a clinic here to take over opioid prescription for him. Onset of pain: osteomyelitis started 7-8 months ago, diagnosed osetosarcoma in SepLocation: L side of faceRadiation: noseDescription: sharp, shootingAverage NRS: 6-7Aggravated by: laying down prolonged standingAlleviated by: ice Current pain medications:Suboxone - doesn't help Previous pain medications:Oxycodone Hydrochloride-- has been out of it 1 week, takes the edge off, no new/reoccurring side effects NENO PACK MD [address] [place] [address], [place], [address], [place] [facility] 07/22/2024 09:09:47
--- OUTSIDE RECORDS SUMMARY | 2025-01-11 19:09 | XMS_ITS | Encounter Summary ---
Author Organization [facility] Address [address] [place] [address] Care Team Providers Care Rate Supervisor Name Role Phone Glenroy Brenner MD Primary Care Provider [phone] Encounter Details Date Type Department Care Team [...] Recorded In the past 12 months has [employer], gas, oil, or water [email or web address] threatened to shut off services in your [...] often do you attend chur ch or rastafarian services? 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 Gender Identity Not on file Sexual Orientation Not on file documented as of this encounter Plan of Treatment Upcoming Encounters Date Type Department Care Team (Late st Contact Info) Description 03/31/2025 9:00 AM CDT Office Visit [facility] [address] [facility] [address] [place] [phone] Glenroy Brenner MD [address] [facility] [address] [place] [phone] documented as of this encounter Visit Diagnoses Not on filedocumented in this encounter Care Teams Rate Supervisor Relationship Specialty Start Date End Date Glenroy Brenner MD [address] [facility] [address] [place] [phone] PCP - General Family Practice 12/29/24 documented as of this encounter
--- NOTE | 2025-01-11 20:39 | W.ED.GENADLT ---
HPI - General Adult General: Chief complaint: General Medical Stated complaint: Rt Side Mouth Pain Time Seen by Provider: 01/11/25 19:15 History of Present Illness: 34 yo male patient presents to ER with c/o right nicolas jaw pain patient has a surgery scheduled for friday for a broken jaw pt states he is only here because he is out of pain meds and cant sleep. Pt has no other complaints and is only here requesting pain meds. Related Data Previous Rx's ?Medication ?Instructions ?Recorded oxycodone-acetaminophen 5 mg-325 1 tab PO Q8H PRN pain #10 tabs 01/13/25 mg tablet (Percocet) Allergies Allergy/AdvReac Type Severity Reaction Status Date / Time Penicillins Allergy ALGY-Rash Verified 01/11/25 19:07 Physical Exam Const: COMMON NORMALS: no acute distress, average body habitus and patient oriented x3 HENMT: OTHER: right sided jaw pain Resp: COMMON NORMALS: normal respiratory effort, No retractions and clear to auscultation bilaterally AUSCULTATION: clear to auscultation bilaterally Cardio: COMMON NORMALS: regular rate and regular rhythm RATE: regular rate RHYTHM: regular rhythm Neuro: COMMON NORMALS: patient oriented x3 Course Vital Signs: Vital signs: Vital Signs Temperature 98.1 F 01/11/25 18:59 Pulse Rate 98 01/11/25 21:13 Respiratory Rate 20 H 01/11/25 18:59 Blood Pressure 136/87 01/11/25 20:49 Pulse Oximetry 96 01/11/25 21:13 Oxygen Delivery Me thod Room Air 01/11/25 20:49 MDM - General Adult Medical Decision Making 34 yo male patient presents to ER with c/o right nicolas jaw pain patient has a surgery scheduled for friday for a broken jaw pt states he is only here because he is out of pain meds and cant sleep. Pt has no other complaints and is only here requesting pain meds. NOrco given while here in the ER patient advised to follow up with surgeon for refill of norco No radiology studies performed this visit Discharge Plan Discharge Patient Disposition: Home Clinical Impression: Chronic jaw pain Condition: Stable Prescriptions: No Action oxycodone-acetaminophen [Percocet] 5-325 mg tablet 1 tab PO Q8H PRN (Reason: pain) Qty: 10 0RF Discharge Orders: Discharge ED (Routine); Ordered 01/11/25 Ordered By: Lilian Amaya Discharge Diet: Advance as tolerated Discharge Activity: Increase activity as tolerated Patient Instructions: Opioid Safety, Pain Management, Patient Portal & Doc Instructions Activity Restrictions/Additional Instructions: Keep your surgery appt friday as planned Follow up with Surgeon for refill of pain meds Return to ER with any worsening of pain or symptoms Print Language: Citizen [place] Coding Level of Care Code ED Building Insulation Supervisor for Anaid Nelson
[2025-01-11] MEDS: HYDROcodone-acetaminophen 5-325 mg Tablet 1 TAB PO ×2 (20:48→21:13)
[2025-01-11 20:49] VITALS: BP 136/87; PULSE 100; O2SAT 99
[2025-01-11 21:13] VITALS: PULSE 98; O2SAT 96
== END 2025-01-11 21:14 | disposition home or self-care (01) ==
PROVIDERS: Emergency Provider Registered Nurse
DX: R68.84 Jaw pain (principal)
CPT/HCPCS: 99283; J9999; Q0162

== ENCOUNTER 2025-01-13 19:02 | Emergency (ER) | payer BC, SELFPAY ==
--- OUTSIDE RECORDS SUMMARY | 2023-09-25 12:00 | XMS_ITS ---
Author Organization [facility] Address [address] [place] [address] Care Team Providers Care Electric Truck Crane Operator Name Role Phone [facility] Unavailable [phone] REASON FOR VISIT Headache / Pain Encounters Encounter Location Date Provider Diagnosis [facility] [address] [place] [address] 09/25/2023 V[facility]UAL PR[facility]ICE [facility] Plan Of Treatment No Information Progress Notes * SHAKIRAJohnny BARRERADOB:1990 (34 yo M)Acc No.[id number]:09/25/2023 IMPORT Patient: Johnny BULLOCK Provider: Dillon SOLER :1990 A ge:32 Y S ex:Male Date:09/25/2023 Phone: Address:[address] [facility] Subjective: * Chief Complaints: * 1 . Headache / Pain. * Medical History: Objective: * Vitals: Assessment: Plan: * Treatment: * Billing Information: * Visit Code: * Procedure Codes: * Electronic signature of [facility] on 01/13/2025 at 08:13 PM EDT Sign off status: Pending * Provider: Dillon SOLER Date: 09/25/2023 Generated for Carmine cantrell/Perla/eTransmitting on: 01/13/2025 08:13 PM EDT
--- OUTSIDE RECORDS SUMMARY | 2024-07-22 04:40 | XMS_ITS ---
Author Organization [facility] Address [address] [place] [address] Support Name Relationship Address , Laxmi March Emergency Contact Unknown Unavailable Johnny Peterson Guarantor Unknown [phone] Care Team Providers Care Rn Pacu Name Role Phone Tex Correia Primary Care Provider Unavaila Tex Marks Unavailable [phone] Hemanth Stewart Unavailable [phone] REASON FOR VISIT delayed f/u Encounters Encounter Location Date Provider Diagnosis [facility] Dillon [address] [facility] [place] [address] 07/22/2024 Hemanth Stewart Plan Of Treatment Next Appt Details Provider Name:Roni Bandar loredo, 01/17/2025 10:00:00 AM, [address], [address], Progress Notes * Johnny PETERSONDOB:1990 (34 yo M)Acc No.[id number]:07/22/2024 Progress Notes Patient: Johnny Mclaughlin Provider: Gracie Stewart APRN :1990 A ge:33 Y S ex:Male Date:07/22/2024 Address:[address] [facility] Pcp:Tex Correia Subjective: * Chief Complaints: * D elayed f/u Billing Information: * Procedure Codes: Care Plan Details* * Electronic signature of Davie Stewart APRN on 01/13/2025 at 07:13 PM CDT Sign off status: Pending * Provider: Gracie Stewart APRN Date: 0 07/22/2024 Generated for Carmine cantrell/Perla/Brandi on: 0 01/13/2025 07:13 PM CDT
--- OUTSIDE RECORDS SUMMARY | 2024-07-28 04:20 | XMS_ITS ---
Author Organization [facility] Address [address] [place] [address] Support Name Relationship Address , Laxmi March Emergency Contact Unknown Unavailable Johnny Kasper Guarantor Unknown [phone] Care Team Providers Care Credit Associate Name Role Phone Tex Correia Primary Care Provider Unavaila Tex Marks Unavailable [phone] REASON FOR VISIT 2 Weeks. Must stay on schedule. [id number] Encounters Encounter Location Date Provider Diagnosis [facility] [address] [place] [address] 07/28/2024 Tex Correia Chronic pain syndrome G89.4 ; Jaw pain R68.84 and Other specified postprocedural states Z98.890 Assessments Encounter Date Diagnosis (ICD Code) Assessment Notes Treatment Notes Treatment Clinical Notes Section Notes 07/28/2024 Chronic pain syndrome (ICD-10 - G89.4) 07/28/2024 Jaw pain (ICD-10 - R68.84) 07/28/2024 Other specified postprocedural states (ICD-10 - Z98.890) Plan Of Treatment Next Appt Details Provider Name:Roni loredo, 01/17/2025 10:00:00 AM, [address] [place], [address], History and Physical Notes * HPI (History [...] ___ Today's Rapid Urine Drug Screen ___ [place] Prescription Monitoring Program ___ COMM (Current Opioid Misuse Measure) ___ Treatment History Test undergone in the past ___ Past medication you have taken ___ Treatments you have had ___ Progress Notes * SHAKIRAHOLLY oJhnnyDOB:1990 (34 yo M)Acc No.[id number]:07/28/2024 Progress Notes Patient: Johnny Mclaughlin Provider: Gracie Correia :1990 A ge:33 Y S ex:Male Date:07/28/2024 Address:[address] [place] [address] Pcp:Tex Correia Subjective: * Chief Complaints: * 2 Weeks. Must stay on schedule. [id number] * HPI: Ruth aguilar Note: Denies : [...] buprenorphine tablets again at a lower dose. Ruth calderon Details: Pain Location _ __. Quality _ [...] Today's Rapid Urine Drug Screen _ __. [place] Prescription Monitoring Program _ __. T reatment [...] Electronic signature of Anthony Correia MD on 01/13/2025 at 07:13 PM CDT Sign off status: Pending * Provider: Gracie Correia Date: 0 07/28/2024 Generated for Carmine cantrell/Perla/Brandi on: 0 01/13/2025 07:13 PM CDT
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
--- OUTSIDE RECORDS SUMMARY | 2024-12-16 04:00 | XMS_ITS ---
Author Organization [facility] Address [address] [place] [id number] Care Team Providers Care Rebar Bender Name Role Phone Joshua Riggins Primary Care Provider [phone] Umberto Martinez III [phone] REASON FOR VISIT f/u visit Encounters Encounter Location Date Provider Diagnosis [facility] [place] [address] [place] [address] 12/16/2024 Joshua Riggins Plan Of Treatment No Information Progress Notes * Johnny PETERSONDOB:1990 (34 yo M)Acc No.[id number]:12/16/2024 Progress Notes Patient: Johnny BULLOCK Appointment Provider: ZAHRAA Moreno :1990 A ge:34 Y S ex:Male Date:12/16/2024 Address:[address] [place], [place] [id number] Subjective: * Chief Complaints: * 1 . F/u visit. * Medical History: Objective: * Vitals: Assessment: Plan: * Treatment: * * Electronic signature of Guido Petersen on 01/13/2025 at 07:13 PM CDT Sign off status: Pending * Appointment Provider: ZAHRAA Moreno Date: 0 12/16/2024 Generated for Carmine cantrell/Perla/eTransmitting on: 0 01/13/2025 07:13 PM CDT
--- OUTSIDE RECORDS SUMMARY | 2024-12-30 03:00 | XMS_ITS ---
Author Organization [facility] Address [address] [place] [id number] Care Team Providers Care Hand Plate Stacker Name Role Phone Joshua Riggins Primary Care Provider Umberto Martinez III [phone] REASON FOR VISIT follow - up Encounters Encounter Location Date Provider Diagnosis [facility] [place] [address] [place] [address] 12/30/2024 Joshua Riggins Plan Of Treatment No Information Progress Notes * Johnny PETERSONDOB:1990 (34 yo M)Acc No.[id number]:12/30/2024 Progress Notes Patient: Johnny BULLOCK Appointment Provider: ZAHRAA Moreno :1990 A ge:34 Y S ex:Male Date:12/30/2024 Address:[address] [place], [place] [address] Subjective: * Chief Complaints: * 1 . Follow - up. * Medical History: Objective: * Vitals: Assessment: Plan: * Treatment: * * Electronic signature of Guido Petersen on 01/13/2025 at 07:13 PM CDT Sign off status: Pending * Appointment Provider: ZAHRAA Moreno Date: 12/30/2024 Generated for Carmine ng/Faissag/eTransmitting on: 01/13/2025 07:13 PM CDT
[2025-01-13 19:09] VITALS: BP 137/89; PULSE 100; RESP 17; TEMP 36.7; O2SAT 98; BMI 30.5
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
--- OUTSIDE RECORDS SUMMARY | 2025-01-13 19:13 | XMS_ITS | Patient Health Record ---
Author Organization [facility] Address [address] [place] [address] Support Name Relationship Address , Laxmi March Emergency Contact Unknown Unavailable Johnny Kasper Guarantor Unknown [phone] Care Team Providers Care Floor Covering Printer Name Role Phone Tex Correia Primary Care Provider Unavaila Tex Marks Unavailable [phone] Migration, Provider Unavailable Unavailable Tony Roni Unavailable [phone] Pat Hemanth Unavailable [phone] Astrid Jimenez Unavailable [phone] Allergies Allergen (clinical drug ingredient) Drug/Non Drug Allergy documented on EMR Reaction Allergy Type Onset Date Status Substance with penicillin structure and antibacterial mechanism of action (substance) Penicillins Unknown Drug Allergy Active tramadol Tramadol Unknown Drug Allergy Active Results Component Value Reference Range Notes zzzUrine Drug Screen (confir mation by instrument) - 64156 Reviewed date:07/20/2024 05:31:29 PM Interpretation: Performing Lab: Notes/Report: Urine Drug Screen (cup read) - 77989 Reviewed date:07/13/2024 01:16:43 PM Interpretation:Negative Performing Lab: Notes/Report: Negative Reason For Referral No Information Medications Medication SIG (Take, Route, Frequency, Duration) Notes Start Date End Date Status Hydrocodone Bitartrate *Pick strength-form from [facility] for eRX* Unknown Social History Social [...] Status Risk Notes Problem Chronic pain syndrome (G89.4) 12/04/2023 Active confirmed Vital Signs Height-cm 177.80 cm 07/07/2024 Height 70.00 in 07/07/2024 Encounters Encounter Location Date Provider Diagnosis [facility]ility 0 0 04/24/2024 Provider Migration [facility]ility 0 0 04/25/2024 Provider Migration [facility] [address] [place] [address] 01/12/2025 Roni Jim[facility] [place] [address] [place] [address] 07/07/2024 Tex Correia [facility] [address] [place] [place] [address] [facility] G89.4 [facility] [address] [place] [address] 07/14/2024 [facility] [address] [place] [address] [facility] [address] [place] [address] 07/[facility] syndrome G89.4 [facility] [place] [address] [place] [address] 07/15/2024 Tex Correia Chronic pain syndrome G89.4 [facility] [place] [address] [place] [address] 07/15/2024 Tex Correia Chronic pain syndrome G89.4 [facility] [address] [place] [place] [address] 07/16/[facility] [address] [place] [address] 07/20/2024 Tex Correia [facility] [place] [address] [place] [address] 08/13/2024 Tex Correia [facility] [place] [address] [place] [address] 01/29/2024 Hemanth [facility] [place] [address] [place] [address] 02/12/2024 Tex Masood [facility] [address] [place] [address] 07/13/2024 Astrid Jimenez Chronic pain syndrome G89.4 [...] patient's report of changing his insurance from [employer] to Medicaid, they are not likely to [...] use (ICD-10 - Z79.891) Plan Of Treatment Next Appt Details Provider Name:Roni Bandar loredo, 01/17/2025 10:00:00 AM, [address] [place], [address], Insurance Providers Payer Name Payer Address Payer Phone Subscriber Number Group Number Insured Name Patient Relationship to Insured Coverage Start Date Coverage End Date [place] Medicaid [address] [place] [phone] [id number] Johnny Kasper Self - patient is the insured Medical (General) History Medical History History ICD Code arthritis headaches/migraines depression anziety Surgical History Surgery Date(Month/Year) appendectomy Jaw surgery
--- OUTSIDE RECORDS SUMMARY | 2025-01-13 19:13 | XMS_ITS | Patient Health Record ---
Author Organization [facility] Address [address] [place] [address] Care Team Providers Care Cylinder Die Machine Helper Name Role Phone Vera Fu Unavailable Unavailable [...] Problem Status W/U Status Risk Notes Problem Other chronic pain (G89.29) Active confirmed Plan Of Treatment No Information Insurance Providers Payer Name Payer Address Payer Phone Subscriber Number Group Number Insured Name Patient Relationship to Insured Coverage Start Date Coverage End Date [facility] [address] [place] [phone] [id number] CHET PETERSON Self - patient is the insured Medical (General) History Medical History History ICD Code depression anxiety Surgical History Surgery Date(Month/Year) Right Knee Surgery Scope Appendectomy Right Knee Surgery for Patellar Tendon R epair Facial Surgery with Plate Hospitalization History Reason Date(Month/Year) See Surgical History
--- OUTSIDE RECORDS SUMMARY | 2025-01-13 19:13 | XMS_ITS | Patient Health Record ---
Author Organization [facility] Address [address] [place] [address] Support Name Relationship Address Phone Johnny Kasper Guarantor Unknown Unavailable Reason For Referral No Information Plan Of Treatment No Information
--- OUTSIDE RECORDS SUMMARY | 2025-01-13 19:13 | XMS_ITS | Encounter Summary ---
Author Organization [facility] Address [address] [place] [address] Care Team Providers Care Sr Risk Management Consultant Name Role Phone Glenroy Brenner MD Primary Care Provider + [phone] Reason for Visit * Reason Comments Needs Orders Written Encounter Details Date Type Department Care Team ([facility] Contact Info) Description 12/29/2024 Telephone [facility] Family Medicine [facility] [address] [address] [address] [place] [address] Glenroy Brenner MD [address] [facility] [address] [place] [address] Needs Orders Written Social History Tobacco Use Types Packs/Day Years Used Date Smoking Tobacco: Every Day Cigarettes 0.5 16.5 Started: 2008 Passive Smoke Exposure: Never Smokeless Tobacco: Never Alcohol Use Standard Drinks/Week Comments Not Currently 0 (1 standard drink = 0.6 oz pur e alcohol) occassionally Sex and Gender Information Value Date Recorded Sex Assigned at Not on file 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 Topic: CPA Information Request - Order or Referral Request >> Dec 29, 2024 10:33 AM Luba Terry wrote: Caller Name: Johnny Bautista [place] Patient/Caregiver Callback Number: Telephone Information: Call Notes: [...] Description 03/31/2025 9:00 AM CDT Office Visit [facility] Family Medicine [facility] [address] [address] [address] [place] [address] Glenroy Brenner MD [address] [place], [place] [address] [address] [place] [phone] documented as of this encounter Visit Diagnoses Not on filedocumented in this encounter Care Teams Sr Risk Management Consultant Relationship Specialty Start Date End Date Glenroy Brenner MD [address] [place], [place] [address] [address] [place] [address] PCP - General Family Practice 12/29/24 documented as of this encounter
--- OUTSIDE RECORDS SUMMARY | 2025-01-13 19:13 | XMS_ITS | Clinical Summary ---
Author Organization [facility] Address [address] 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 Active naloxone (NARCAN) 4 mg/spray [place], Non-Aerosol EMERGENCY USE ONLY: Administer 1 spray [...] STL ABSTRACTION Provider, Abstract 12/31/2024 Nurse Triage [facility] [address] [place] [address] Chastity Simpson RN 12/30/2024 Orders Only [facility] [address] [place] [phone] Provider, Abstract 12/29/2024 8:00 AM CDT Office Visit [facility] [address] [address] [address] [place] [phone] Glenroy Brenner MD Chronic midline low back pain without sciatica (Primary Dx) 12/29/2024 Telephone [facility] [address] [address] [address] [place] [phone] Glenroy Brenner MD Needs Orders Written 12/21/2024 2:54 PM CDT - 12/21/2024 5:31 PM CDT Emergency [facility] Emergency Department [address] [place] [phone] Discharge Disposition: Eloped After Seeing Provider 12/21/2024 Travel 12/09/2024 4:38 PM CDT - 12/09/2024 6:24 PM CDT [facility] Emergency Medicine [address] [place] [address] Daljit Stephenson MD Jaw pain (Primary Dx) Discharge Disposition: Home or Self Care 12/09/2024 Travel 11/30/2024 External Device Data STL ABSTRACTION Provider, Abstract 11/16/2024 3:32 PM CDT - 11/16/2024 4:59 PM CDT [facility] Emergency Medicine [address] [place] [phone] Tex Harrison MD Acute bilateral low back pain without sciatica (Primary Dx); Fall, initial encounter Discharge Disposition: Home or Self Care 11/13/2024 10:28 PM CDT - 11/13/2024 11:05 PM CDT [facility] Emergency Medicine [address] [place] [phone] Harshad Sheehan MD Malingering (Primary Dx); Opioid abuse (CMS/HCC) Discharge Disposition: Home or Self Care 11/13/2024 Travel 11/09/2024 [facility] [address] [place] [address] Jacklyn Sen [facility] 11/08/2024 8:45 PM CDT - 11/08/2024 10:41 PM CDT Emergency [facility] Emergency Medicine [address] [place] [phone] Douglas Gabriel MD Opiate withdrawal (CMS/HCC) (Primary Dx); Chronic prescription opiate use Discharge Disposition: Home or Self Care 11/04/2024 12:21 PM CDT - 11/04/2024 1:26 PM CDT [facility] Emergency Medicine [address] [place] [phone] Jeancarlos Almeida MD Opioid withdrawal (CMS/HCC) (Primary Dx) Discharge Disposition: Home or Self Care 11/02/2024 External Device Data STL ABSTRACTION Provider, Abstract 11/02/2024 External Device Data STL ABSTRACTION Provider, Abstract 11/02/2024 External Device Data STL ABSTRACTION Provider, Abstract 10/28/2024 8:22 PM CDT - 10/28/2024 9:34 PM CDT Emergency [facility] Emergency Medicine [address] [place] [address] Douglas Gabriel MD Chronic jaw pain (Primary Dx) Discharge Disposition: Home or Self Care 10/28/2024 Travel from Last 3 Months Immunizations Immunization Administration [...] on file 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 Procedure Note Johnny Wayne DO - 11/16/2024 Provided indication: Low back [...] appear normal. Impression: No acute osseous abnormality. us Tex Harrison MD CT ORDERABLES Final [...] fracture or acute cervical spinal abnormality identified. us Tex Harrison MD CT [...] ganglia is symmetric in appearance. The midbrain, dlajit and medulla are unremarkable. The right and left cerebellar hemispheres are unremarkable. No acute osseous abnormality identified. IMPRESSION: No acute intracranial abnormality identified. Tex Harrison MD CT ORDERABLES Final Result from Last 3 Months Insurance [facility] TRUE BLUE PPO Advance Directives For more information, please contact: [phone] * Full Code (Latest Code Status on File) Date Activated Date Inactivated Comments 10/18/2023 11:26 PM 10/21/2023 3:35 PM Care Teams Shell Machine Operator Relationship Specialty Start Date End Date Glenroy Brenner MD [address] [place] [address] 248 [facility] [address] [place] [address] PCP - General Family Practice 12/29/24
--- OUTSIDE RECORDS SUMMARY | 2025-01-13 19:14 | XMS_ITS | Data Portability ---
Author Organization [facility] Address [address] [place] [address] Assessment Encounter Date Assessment Date Assessment LastModified by Organization Details LastModified Time 07/21/2024 07/21/2024 Patient is a 33 yo with PMH of kidney disease? who was referred from self for evaluation and management of osteomyelitis vs osteosarcoma. He states they are planning to do IV chemotherapy. He is trying to transfer chronic opioid management here. 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 He understands. 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 Procedures Surgical History Date Name Laterality Status Provider Name and Address Organization Details Recorded Time 11/14/2023 Other completed Consuelo Rojas [facility] 07/21/2024 16:44:46 Imaging Results None recorded. Procedure Notes None recorded. Medical Equipment None Reported. Allergies Allergen ID Allergen Name Allergen Category Reaction Reaction Severity Criticality Documentation Date Start Date Code Code System Note Provider Name and Address Organization Details Recorded Time 91206 Product containin g penicilli n (product) medicatio n hives severe Not available 07/21/20242001 70386 8001 SNOMED Consuelo Rojas [facility] 5 16:44:45 Medications [...] Details Last Updated DateTime 5 12 /min 35844.7 8 g 32 kg/m2 171.45 cm 99.1 [degF] 99 % 99 % 67 /min 192/114 mm[Hg] Consuelo Rojas [facility] 16:55:35 Social History Question Answer Notes LastModified by Organizat ion Details LastModified Time Tobacco Smoking Status Current Every Day Smoker Consuelo Rojas nikki [facility] 07/21/2024 16:58:26 What Is Your Level Of Caffeine Consumption? Moderate Information not available 07/21/2024 How Much Tobacco Do You Chew? None [email or web address] Information not available 07/21/2024 Which Illicit Or Recreational Drugs Have You Used? None [email or web address] Information not available 07/21/2024 What Is The Highest Grade Or Level Of School You Have Completed Or The Highest Degree You Have Received? PE67871-2 [email or web address] Information not available 07/21/2024 How Much Tobacco Do You Smoke? 1 PPD [email or web address] Information not available 07/21/2024 How Many Years Have You Smoked Tobacco? 20 [email or web address] Information not available 07/21/2024 Sex: Unknown Functional Status Question Answer Note LastModified by Organizat ion Details LastModified Time Do you use any illicit or recreational drugs? No [email or web address] Information not available 07/21/2024 What is your level of alcohol consumption? 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 Disability [email or web address] Information not available 07/21/2024 Mental Status None recorded. Family History Relationship Description Onset Age of this Age Resolved Age Notes LastModified by Organization Details LastModified Time Mother Arthritis 55 [email or web address] Not availab le 07/21/2024 16:44:45 Mother Kidney disease 48 [email or web address] Not available 2024 16:44:45 Maternal Grandfather Malignant neoplastic disease 65 [email or web address] Not available 2024 16:44:45 Paternal Grandfather Back problem 65 [email or web address] Not available 07/21/2024 16:44:45 Medical History Condition Response Cancer Y Kidney Disease Y Past Encounters Encounter ID Performer Location Encounter Start Date Encounter Closed Date Diagnosis/Indication Diagnosis SNOMED-CT Code Diagnosis ICD10 Code Diagnosis Note [id number] NENO PACK MD [facility] Main Office [address] [facility] [address] [place] [address] 07/21/2024 16:29:36 07/21/2024 17:19:58 Chronic pain syndrome 057353529 G89.4 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 0464336 M87.9 Health Concerns Section Related Observation LastModified by Organization Detai ls LastModified Time None Recorded Concern Status LastModified by Organization Details LastModified Time None Recorded Advance Directives Directive None Recorded Payers Insurance Date Sequence Insurance Name Policy Number Policy Ojeda Covered Member ID Ojeda Member ID Guarantor Name 07/21/2024 2 [place] Johnny Kasper [id number] 1 Johnny Kasper 07/21/2024 1 [place] MERYLADALID Kasper [id number] Johnny Kasper Notes Date Note Type Note Provider Name and Address Organization Details Recorded Time 5 text/html Patient is a 33 yo with PMH of kidney disease? who was referred from self for evaluation and management of osteomyelitis vs osteosarcoma. He states they are planning to do IV chemotherapy. He was previously a patient at a pain clinic in [place] but states they put him on Suboxone [...] no new/reoccurring side effects NENO PACK MD [address] [place] [address] [address], [place], [address], [place] [facility] 07/22/2024 09:09:47
--- NOTE | 2025-01-13 19:36 | XRR_ITS ---
PROCEDURE INFORMATION: Exam: XR Left Hand Exam date and time: 01/13/2025 7:42 PM Age: 34 years old Clinical indication: Injury or trauma; Other: Chainsaw cut hand; Work related; Laceration; Left; Additional info: Chain saw vs hand TECHNIQUE: Imaging protocol: Radiologic exam of the left hand. Views: 1 or 2 views. COMPARISON: No relevant prior studies available. FINDINGS: Bones/joints: No evidence of acute fracture or dislocation. No erosive disease. No significant degenerative change. Soft tissues: No radiopaque foreign body or soft tissue gas. XR/XR hand LT 2V [id number] IMPRESSION: No acute bony injury. No radiopaque foreign body.
[2025-01-13 20:19] VITALS: RESP 17
[2025-01-13] MEDS: oxyCODONE-APAP 5-325 mg Tablet 1 TAB PO (20:19)
[2025-01-13] MEDS: tetanus-dipt-pertussis 0.5 mL SDV IM (20:20)
[2025-01-13 20:53] VITALS: BP 143/92; PULSE 98; O2SAT 98
[2025-01-13] MEDS: lidocaine-epi 1% 20 mL INJ 5 ML INJECTION (20:59)
--- NOTE | 2025-01-14 00:25 | ED_ITS ---
HPI - Wound/Laceration General: Chief Complaint: Wound/Laceration Stated Complaint: L hand hit by chainsaw Time Seen by Provider: 01/13/25 19:35 History of Present Illness: Patient is a well-appearing 34-year-old male seen for laceration of left hand sustained when he was chopping down a portion of a tree using a chainsaw. He states that the chainsaw jumped back from the tree striking his left hand causing laceration. He came to the emergency department immediately. He complains of 4 of 10 pain which is worse with motion and better with rest. Bleeding is stopped with direct pressure. He states he is able to move all his fingers both in flexion and extension fully and that he has no loss of sensation in his hand. He is uncertain whether his tetanus is up-to-date. Related Data Previous Rx's ?Medication ?Instructions ?Recorded oxycodone-acetaminophen 5 mg-325 1 tab PO Q8H PRN pain #10 tabs 01/13/25 mg tablet (Percocet) Allergies Allergy/AdvReac Type Severity Reaction Status Date / Time Penicillins Allergy ALGY-Rash Verified 01/11/25 19:07 Physical Exam Const: COMMON NORMALS: no acute distress, patient oriented x3 and alert HENMT: COMMON NORMALS: normocephalic and atraumatic HEAD & SCALP: normocephalic and atraumatic Eye: COMMON NORMALS: Equal, round and reactive pupils present, EOMs intact bilaterally and no scleral icterus PUPIL: Yes Equal, round and reactive pupils present Resp: COMMON NORMALS: normal respiratory effort and No retractions Cardio: COMMON NORMALS: regular rate, regular rhythm and No murmurs present (Cardio) RATE: regular rate RHYTHM: regular rhythm GI: COMMON NORMALS: Normal to inspection, nondistended, normoactive bowel sounds present, Soft to palpation and non-tender PALPATION: Yes Soft to palpation Extremity: NARRATIVE EXTREMITY EXAM: Full range of motion of the left wrist and all fingers at all joints individually tested. No sensory loss. Neuro: COMMON NORMALS: patient oriented x3 SENSORIUM/ORIENTATION: Yes alert Skin: NARRATIVE SKIN EXAM: 5 cm linear laceration on the dorsum of the left hand overlying the metacarpal bones. No obvious tendon involvement. No bone involvement. No swelling. Procedures Laceration Laceration 1: Site: hand Side (If applicable): left Size (cm): 5 Description: linear Depth: simple, single layer Local Anesthetic: lidocaine 1% and with epi Amount of anesthesia used (mL): 4 Pre-repair: wound explored, irrigated extensively and deep structures intact Skin layer closed with: nylon Size (cm): 5-0 Number of sutures: 4 Technique: simple, interrupted Course Vital Signs: Vital signs: Vital Signs Temperature 98.1 F 01/13/25 19:09 Pulse Rate 98 01/13/25 20:53 Respiratory Rate 17 01/13/25 20:19 Blood Pressure 143/92 01/13/25 20:53 Pulse Oximetry 98 01/13/25 20:53 Oxygen Delivery Me thod Room Air 01/13/25 19:09 MDM - Wound/Laceration Medical Decision Making Wound was thoroughly cleansed and then repaired using interrupted sutures with excellent approximation of the tissues. X-ray of the hand shows no evidence of fracture or other abnormality. I do not suspect nerve, blood vessel, tendon, or bony involvement based on physical exam findings. He will be discharged in stable and improved condition with follow-up primary care in roughly 7 to 10 days for suture removal. Lab Data Radiology Impressions Hand X-Ray 01/13/25 19:36 IMPRESSION: No acute bony injury. No radiopaque foreign body. All radiology interpretation(s) finalized by discharge Discharge Plan Discharge Patient Disposition: Home Clinical Impression: Laceration of hand, left Condition: Stable Prescriptions: New oxycodone-acetaminophen [Percocet] 5-325 mg tablet 1 tab PO Q8H PRN (Reason: pain) Qty: 10 0RF Discharge Orders: Discharge ED (Routine); Ordered 01/13/25 Ordered By: Jaylen Ochoa Patient Instructions: Laceration (ED), Opioid Safety, Pain Management, Patient Portal & Doc Instructions Activity Restrictions/Additional Instructions: Please keep your hand clean. It is safe to wash it with soap and water. Please have sutures removed in roughly 7 to 10 days. Print Language: Barbadian Coding Level of Care Code ED Agricultural And Forestry Supervisor for Anaid Nelson
== END 2025-01-13 20:57 | disposition home or self-care (01) ==
PROVIDERS: Emergency Provider Student in an Organized Health Care Education/Training Program
DX: S61.412A Laceration without foreign body of left hand, initial encounter (principal); W29.3XXA Contact with powered garden and outdoor hand tools and machinery, initial encounter
CPT/HCPCS: 12002; 73120; 90471; 90715; 99283; J9999